=== PATIENT | female | born 1965 | race Caucasian/White ===

== ENCOUNTER 2017-03-10 12:36 | Emergency (ER) | payer SELFPAY ==
[2017-03-10] MEDS ORDERED: ALBUTEROL SULFATE 0.083% NEB 2.5 MG/3 ML AMPUL NEB ONE (12:50)
--- NOTE | 2017-03-10 12:53 | ER Document Report ---
ED Medical Screen (RME) - General Chief Complaint: Shortness Of Breath Stated Complaint: SHORTNESS OF BREATH Time Seen by Provider: 03/10/17 12:44 Mode of Arrival: Ambulatory Information source: Patient TRAVEL OUTSIDE OF THE [place] IN LAST 30 DAYS: No - HPI Patient complains to provider of: Shortness of breath Onset: Last week Onset/Duration: Persistent Associated Symptoms: Cough (nonproductive), Shortness of breath Exacerbated by: Denies Relieved by: Denies Similar symptoms previously: No Recently seen / treated by doctor: No Notes: 03/10/17 12:52 Patient is a 51-year-old female who quit smoking approximately 1 month ago, who presents to the emergency room complaining of shortness of breath this been worsening over the past week, he denies any chest pain, no fevers, nonproductive cough patient is noted to be tachycardic and slightly tachypneic in the triage waiting area - Related Data Smoking: Quit less than 1 year Allergies/Adverse Reactions: codeine Allergy (Verified 03/10/17 12:42) Past Medical History Renal/ Medical History: Denies: Hx Peritoneal Dialysis Physical Exam - Vital signs Vitals: Temp Pulse Resp BP Pulse Ox 97.5 F 124 H 24 H 144/101 H 97 03/10/17 12:40 03/10/17 12:40 03/10/17 12:40 03/10/17 12:40 03/10/17 12:40 Course - Vital Signs Vital signs: Temp Pulse Resp BP Pulse Ox 97.5 F 124 H 24 H 144/101 H 97 03/10/17 12:40 03/10/17 12:40 03/10/17 12:40 03/10/17 12:40 03/10/17 12:40
--- NOTE | 2017-03-10 13:24 | ER Document Report ---
ED General - General Chief Complaint: Shortness Of Breath Stated Complaint: SHORTNESS OF BREATH Time Seen by Provider: 03/10/17 12:44 Mode of Arrival: Ambulatory Information source: Patient Notes: This is a 51-year-old female with no prior medical problems who presents to the emergency room with progressive shortness of breath and dyspnea on exertion for the past week. Patient states that she stopped smoking 1 month ago because " she was sick of it". Patient denies any chest pain. Patient does report that she has had a 9 pound weight gain over the last week but has not been eating much. Patient also reports lower extremity swelling. The patient does have a significant family history for coronary artery disease. Her father at age 61 after his 11th heart attack. Her mother at age 76 of congestive heart failure. Patient has a half-sister with no known medical problems. TRAVEL OUTSIDE OF THE [place] IN LAST 30 DAYS: No - HPI Onset: Last week Onset/Duration: Gradual Quality of pain: No pain Severity: None Pain Level: Denies Associated symptoms: Shortness of breath. denies: Chills, Fever Exacerbated by: Movement, Walking Relieved by: Remaining still Similar symptoms previously: No Recently seen / treated by doctor: No - Related Data Allergies/Adverse Reactions: codeine Allergy (Verified 03/10/17 14:24) Past Medical History - General Information source: Patient - Social History Smoking Status: Former Smoker Cigarette use (# per day): Yes - Smoked a pack a day up until 1 month ago Chew tobacco use (# tins/day): No Frequency of alcohol use: None Drug Abuse: None Lives with: Spouse/Significant other Family History: None Patient has suicidal ideation: No Patient has homicidal ideation: No - Medical History Medical History: Negative Renal/ Medical History: Denies: Hx Peritoneal Dialysis Surgical Hx: Negative Review of Systems - Review of Systems Constitutional: denies: Chills, Fever EENT: No symptoms reported Cardiovascular: Orthopnea. denies: Chest pain Respiratory: Short of breath Gastrointestinal: No symptoms reported Genitourinary: No symptoms reported Female Genitourinary: No symptoms reported Musculoskeletal: No symptoms reported Skin: No symptoms reported Hematologic/Lymphatic: No symptoms reported Neurological/Psychological: No symptoms reported Physical Exam - Vital signs Vitals: Temp Pulse Resp BP Pulse Ox 97.5 F 124 H 24 H 144/101 H 97 03/10/17 12:40 03/10/17 12:40 03/10/17 12:40 03/10/17 12:40 03/10/17 12:40 Notes: Physical exam: GENERAL: A 51-year-old female, alert and oriented 3, appears mildly uncomfortable. HEAD: Atraumatic, normocephalic. EYES: Pupils equal round and reactive to light, extraocular movements intact, sclera anicteric, conjunctiva are normal. ENT: TMs normal, nares patent, oropharynx clear without exudates. Moist mucous membranes. NECK: Normal range of motion, supple without lymphadenopathy or JVD. LUNGS: Decreased breath sounds at the bases HEART: Regular rate and rhythm without murmurs, rubs or gallops. ABDOMEN: Soft, normoactive bowel sounds. No tenderness to palpation. No guarding, no rebound. No masses appreciated. EXTREMITIES: 1+ edema bilaterally NEUROLOGICAL: Cranial nerves II through XII grossly intact. Normal speech, normal gait. PSYCH: Normal mood, normal affect. SKIN: Warm, Dry, normal turgor, no rashes or lesions noted. Course - Re-evaluation Re-evalutation: 03/10/17 19:31 Case discussed with the regulatory and compliance technician at [facility]. The plan will be to discharge patient there. In the ER, patient was started on IV Lasix Subcu Lovenox was given Subcu insulin was given - Vital Signs Vital signs: Temp Pulse Resp BP Pulse Ox 97.5 F 124 H 25 H 132/95 H 95 03/10/17 12:40 03/10/17 12:40 03/10/17 16:00 03/10/17 15:01 03/10/17 16:00 - Laboratory Result Diagrams: 03/10/17 13:15 03/10/17 13:15 Laboratory results interpreted by me: 03/10/17 03/10/17 03/10/17 13:15 13:15 13:15 RBC 5.50 H Hgb 16.3 H Hct 49.3 H Sodium 132.9 L Chloride 96 L Glucose 461 H* Direct Bilirubin 0.5 H AST 62 H ALT 110 H Alkaline Phosphatase 129 H NT-Pro-B Natriuret Pep 2120 H - Diagnostic Test Radiology reviewed: Image reviewed, Reports reviewed - Bilateral pleural effusions - EKG Interpretation by Me Rate: Tachycardia Rhythm: NSR - EKG shows sinus tachycardia with a ventricular rate of 122. There is a left bundle branch block with no ECG. Critical Care Note - Critical Care Note Total time excluding time spent on procedures (mins): 55 Discharge - Discharge Clinical Impression: New-onset CHF, ACS Condition: Serious Disposition: [facility]
[2017-03-10] MEDS ORDERED: ASPIRIN 81 MG TABLET, CHEWABLE PO ONE (13:27)
[2017-03-10] MEDS ORDERED: FUROSEMIDE INJ/PF 20 MG/2 ML SDV IV ONE (13:28)
[2017-03-10 13:37] LABS: ABSOLUTE BASOPHILS # (AUTO) 0.1 10^3/uL (0.0-0.2); ABSOLUTE LYMPHOCYTES (AUTO) 2.4 10^3/uL (0.5-4.7); ABSOLUTE MONOCYTES (AUTO) 0.8 10^3/uL (0.1-1.4); ABSOLUTE NEUT (AUTO) 6.7 10^3/uL (1.7-8.2); BASOPHILS % (AUTO) 0.5 % (0-2); EOSINOPHILS % (AUTO) 0.1 % (0-6); HEMATOCRIT 49.3 % (36.0-47.0); HEMOGLOBIN 16.3 g/dL (12.0-15.5); HGB HCT DIFFERENCE -0.4; LYMPHOCYTES % (AUTO) 24.2 % (13-45); MEAN CORPUSCULAR HEMOGLOBIN 29.7 pg (27.0-33.4); MEAN CORPUSCULAR HGB CONC 33.1 g/dL (32.0-36.0); MEAN CORPUSCULAR VOLUME 90 fl (80-97); MONOCYTES % (AUTO) 7.8 % (3-13); RED CELL DISTRIBUTION WIDTH 13.7 % (11.5-14.0); SEGMENTED NEUTROPHILS % (AUTO) 67.4 % (42-78); WHITE BLOOD COUNT 9.9 10^3/uL (4.0-10.5)
[2017-03-10 13:59] LABS: ALANINE AMINOTRANSFERASE 110 U/L (9-52); ALBUMIN 3.8 g/dL (3.5-5.0); ALKALINE PHOSPHATASE 129 U/L (38-126); ANION GAP 15 (5-19); ASPARTATE AMINO TRANSFERASE 62 U/L (14-36); BILIRUBIN,DIRECT 0.5 mg/dL (0.0-0.4); BLOOD UREA NITROGEN 12 mg/dL (7-20); CALCIUM 9.6 mg/dL (8.4-10.2); CARBON DIOXIDE 22 mmol/L (22-30); CHLORIDE 96 mmol/L (98-107); CREATINE KINASE 88 U/L (30-135); CREATININE RESULT 0.54 mg/dL (0.52-1.25); SODIUM 132.9 mmol/L (137-145); TOTAL PROTEIN 6.5 g/dL (6.3-8.2)
--- NOTE | 2017-03-10 14:06 | RADIOLOGY REPORT (SQ) ---
EXAM DESCRIPTION: CHEST SINGLE VIEW COMPLETED DATE/TIME: 03/10/2017 1:55 pm REASON FOR STUDY: sob COMPARISON: None. EXAM PARAMETERS: NUMBER OF VIEWS: One view. TECHNIQUE: Single frontal radiographic view of the chest acquired. RADIATION DOSE: NA LIMITATIONS: None. FINDINGS: LUNGS AND PLEURA: Small pleural effusions and associated airspace disease, right greater l eft. MEDIASTINUM AND HILAR STRUCTURES: No masses. Contour normal. HEART AND VASCULAR STRUCTURES: Heart size upper limits of normal. BONES: No acute findings. HARDWARE: None in the chest. OTHER: No other significant finding. IMPRESSION: Bilateral pleural effusions. TECHNICAL DOCUMENTATION: JOB ID: [id number]
[2017-03-10 14:11] LABS: CREATINE KINASE MB 3.65 ng/mL (<4.55)
[2017-03-10 14:12] LABS: GLUCOSE 461 mg/dL (75-110)
[2017-03-10 14:14] LABS: TROPONIN I 0.922 ng/mL
[2017-03-10 14:29] LABS: THYROID STIMULATING HORMONE 2.01 uIU/mL (0.47-4.68)
[2017-03-10] MEDS ORDERED: ENOXAPARIN SODIUM INJ 100 MG/1 ML DISP.SYRIN SUBCUT ONE (14:53)
[2017-03-10 15:35] VITALS: BP 132/95
--- NOTE | 2017-03-10 17:01 | EKG REPORT ---
SEVERITY:- ABNORMAL ECG - SINUS OR ECTOPIC ATRIAL TACHYCARDIA LEFT BUNDLE BRANCH BLOCK : Confirmed by: Rohith Carter MD 10-Mar-2017 17:00:48
== END 2017-03-10 16:25 | disposition short-term general hospital (02) ==
LOC: ER 12:36
DX: I50.9 Heart failure, unspecified (principal); I24.9 Acute ischemic heart disease, unspecified; R06.02 Shortness of breath; R06.00 Dyspnea, unspecified; Z87.891 Personal history of nicotine dependence; R22.43 Localized swelling, mass and lump, lower limb, bilateral
CPT/HCPCS: 93005; 94640; 99291; 96372; 96374; 36415; 84439; 82553; 82550; 84443; 85025; 80053; 84484; 83880; 71010; 93010; J1940; J1650